=== PATIENT | female | born 1995 | race African-American/Black ===

== ENCOUNTER 2020-09-20 09:48 | Emergency (ER) | payer OTHER ==
[~2020-09-20] VITALS: Ht 152.4 cm; Wt 77.0 kg
[2020-09-20] MEDS ORDERED: SODIUM CHLORIDE 0.9% 1,000 ML IV ONE (10:45)
[2020-09-20] MEDS ORDERED: LORAZEPAM 2MG/ML CPJ IV ONE (10:45)
[2020-09-20 11:00] LABS: BASOPHILS % 0.3 % (0.0-2.0); EOSINOPHILS % 0.3 % (0.0-5.0); HEMATOCRIT. 40.1 % (36.0-48.0); HEMOGLOBIN. 13.4 g/dL (12.0-16.0); LYMPHOCYTES % 18.1 % (20.0-50.0); MEAN CORPUSCULAR VOLUME 80.7 fL (81.0-99.0); MEAN PLATELET VOLUME 7.3 fl (7.4-10.4); MONOCYTES % 7.1 % (2.0-8.0); NEUTROPHILS % 74.2 % (40.0-76.0); PLATELET 293 x1000/uL (130-400); RED BLOOD CELL COUNT 4.98 mill/uL (4.2-5.4); RED CELL DISTRIBUTION WIDTH 13.7 % (11.6-14.6)
[2020-09-20 11:07] LABS: CHLORIDE 108 mEq/L (98-107)
[2020-09-20 11:11] LABS: ETHANOL BLOOD < 10 mg/dL
[2020-09-20 12:17] LABS: *AMPHETAMINES SCREEN URINE NEGATIVE (NEGATIVE); OPIATES URINE SCREEN NEGATIVE (NEGATIVE); PHENCYCLIDINE URINE SCREEN NEGATIVE (NEGATIVE)
[2020-09-20 12:18] LABS: *BARBITURATES SCREEN URINE NEGATIVE (NEGATIVE); *BENZODIAZEPINES SCREEN URINE NEGATIVE (NEGATIVE); *COCAINE SCREEN URINE NEGATIVE (NEGATIVE); METHADONE URINE SCREEN NEGATIVE (NEGATIVE)
[2020-09-20 12:20] LABS: CANNABINOID URINE SCREEN PRESUMTIVE POSITIVE (NEGATIVE)
[2020-09-20 13:07] VITALS: BP 130/70
== END 2020-09-20 13:25 | disposition home or self-care (01) ==
LOC: ER 09:48
DX: R00.2 Palpitations (principal); F41.9 Anxiety disorder, unspecified; F12.10 Cannabis abuse, uncomplicated; F10.10 Alcohol abuse, uncomplicated; Y90.0 Blood alcohol level of less than 20 mg/100 ml; Z88.1 Allergy status to other antibiotic agents
CPT/HCPCS: 36415; 80053; 80305; 80320; 81025; 85025; 93005; 96361; 96374; 99284; J2060; J7030; Z7610; G0480